=== PATIENT | male | born 1985 | race Caucasian/White ===

== ENCOUNTER 2018-04-14 20:01 | Inpatient (IN) | payer OTHER ==
[~2018-04-14] VITALS: Ht 188 cm; Wt 67.6 kg
--- NOTE | 2018-04-21 22:35 | NUR ---
PRE ADMISSION NOTE Pt is a 33 y/o male seen at intake on 04/21/18 for opiate withdrawal. Pt reports last intake of heroin IV 0.1 g this afternoon, typically uses 1 gram daily for the past month. Pt also reports intermittent methamphetamine use. Pt is ambulatory with steady gait. Vital signs: BP 144/67, HR 83, R 16, 02 98%, T 98.4 and Pain 0/10. Pt denies hx of allergies or seizures. Pt denies bringing home medications. Reports PMH of spinal fusion in 2014. Educated pt about rules and policies of the unit including handling of contraband and taking vital signs Q4H. Will continue care of patient upon arrival on unit.
--- NOTE | 2018-04-21 22:56 | NUR ---
ADMISSION NOTE Pt arrived on the unit 2256 for 04/21/18 for medically supervised withdrawal from opiates. Skin and body check completed, skin intact and no contraband found. Pt has abrasion on right forearm, IV track vang on left forearm and scar on upper back from spinal fusion. Pt provided UDS. Pt is 61 and weighs 149 lbs. Pt presents with anxiety, restlessness, poor eye contact, depressed affect, slumped posture, lethargy. Pt is ambulatory with steady gait. PEERLA. Respirations even and unlabored, lung sounds clear. Vital signs: BP 144/67, HR 83, R 16, 02 98%, T 98.4 and Pain 0/10. Substance Use History: 1. Heroin IV 1 g daily, last intake of 0.1 g this afternoon, at this rate for 1 month. 2. Methamphetamine 1 or two hits via smoke or IV intermittent approximately 3 x a week, last intake of 1 hit this afternoon, at this rate for 1 month. Pt reports the following S/S of withdrawal: Restlessness, body aches, stuffy nose, runny nose, and anxiety. Pt is full code, regular diet, NKA, and on fall precautions. No reported seizure history. Denies hx of withdrawal induced delirium, withdrawal induced cardiac complications or overdoses. Reports hx of blackout from ETOH from social drinking in the past. Pt reports PMH of spinal fusion in 2014. Pt smokes 0.5 pack daily, denies desire to quit at this time. Pt is not a candidate for MRSA, denies being hospitalized or in shelter in past 30 days. Reports having a PCP, but does not remember his name. Pt denies having siblings or kids, reports substance use history ETOH with mother and father. Pt reports his longest sobriety period was for 5 months 1 year ago after treatment at [facility] in [place]. Pt reports having the following treatment history: [facility] in [place], [place] for 2 months in January 2017, [facility] in [place] for 10 days in November 2017 and then [facility] in [place] directly after [facility] for 20 days. Pt stayed sober for one month after [facility]. Pt reports difficulty maintaining sobriety r/t difficulty coping with negative emotions and to avoid S/S of withdrawal. Pt reports that he relapsed this last time d/t getting kicked out of his last treatment program then not having Suboxone available and wanted to avoid S/S of withdrawal so he used again. Pt reports multiple consequences from using such as inability to maintain a job, difficulty maintaining close relationships, recent break up with his ex girlfriend, and not having a place to live at the moment. Pt reports he was living with his girlfriend, but since the breakup he has been sleeping on friends couches. Pt states that he wants to get sober and states, I dont want to feel like shit anymore...Im sick of losing relationships and I hate not being able to hold a job. Pt reports that this admission will be different, states, Jenelle learned a lot on the way from all my relapses and Im going to take this more seriously this timeBefore I wasnt going to meetings or being proactive about my sobriety, this time I want to try everything and take this seriously. Oriented pt to room and unit, educated pt about rules and expectations of unit and how to use call light. Pt verbalized understanding. Addendum: 04/22/18 at 0650 by DERRICK YATES RN Additional: Initial COWS 7. Pt refuses any PRNs. Pt states, "I'm not ready for Subutex yet."
[2018-04-21] MEDS ORDERED: ACETAMINOPHEN 325 MG TABLET PO PRN (23:00)
[2018-04-21] MEDS ORDERED: diphenhydrAMINE 50 MG CAPSULE PO PRN (23:00)
[2018-04-21] MEDS ORDERED: IBUPROFEN 400 MG TABLET PO PRN (23:00)
[2018-04-21] MEDS ORDERED: ONDANSETRON ODT 4 MG TAB.RAPDIS SL PRN (23:00)
[2018-04-21] MEDS ORDERED: MIRALAX 17 GM POWD.PACK PO PRN (23:00)
[2018-04-21] MEDS ORDERED: MAGNESIUM HYDROXIDE 30 ML LIQUID UDC PO PRN (23:00)
[2018-04-21] MEDS ORDERED: DICYCLOMINE HCL 20 MG TABLET PO PRN (23:00)
[2018-04-21] MEDS ORDERED: LOPERAMIDE HCL 2 MG CAPSULE PO PRN ×2 (23:00)
[2018-04-21] MEDS ORDERED: BUPRENORPHINE HCL 2 MG TAB.SUBL SL PRN (23:00)
[2018-04-21] MEDS ORDERED: MAG HYDROX/AL HYDROX/SIMETH 30 ML LIQUID UDC PO PRN (23:00)
[2018-04-21] MEDS ORDERED: ONDANSETRON 4 MG/2 ML VIAL IM PRN (23:00)
[2018-04-21 23:13] LABS: BASOPHILS # (AUTO) 0.1 K/uL (0.0-8.0); BASOPHILS % (AUTO) 1.4 % (0.0-2.0); EOSINOPHILS # (AUTO) 0.2 K/uL (0.0-0.7); EOSINOPHILS % (AUTO) 2.4 % (0.0-7.0); HEMOGLOBIN 13.5 g/dL (12.5-16.3); LYMPHOCYTES # (AUTO) 1.5 K/uL (20.0-40.0); LYMPHOCYTES % (AUTO) 19.8 % (20.5-51.5); MEAN CORPUSCULAR HEMOGLOBIN 30.5 uug (23.8-33.4); MEAN CORPUSCULAR HGB CONC 35 g/dL (32.5-36.3); MEAN CORPUSCULAR VOLUME 88.4 fL (73.0-96.2); MONOCYTES # (AUTO) 0.8 K/uL (2.0-10.0); MONOCYTES % (AUTO) 10.2 % (0.0-11.0); NEUTROPHILS % (AUTO) 66.2 % (38.5-71.5); PLATELET COUNT (AUTO) 266 K/uL (152-348); RED BLOOD CELL COUNT(AUTO) 4.41 MIL/uL (4.06-5.63); WHITE BLOOD COUNT (AUTO) 7.5 K/uL (3.6-10.2)
[2018-04-21 23:28] LABS: *AMPHETAMINE, URINE POSITIVE (NEGATIVE); *BARBITURATE, URINE NEGATIVE (NEGATIVE); *CANNABINOID, URINE NEGATIVE (NEGATIVE); *COCCAINE, URINE NEGATIVE (NEGATIVE); *OPIATE, URINE POSITIVE (NEGATIVE); *PHENCYCLIDINE SCREEN,URINE NEGATIVE (NEGATIVE)
[2018-04-21 23:37] LABS: ETHANOL < 3 MG/DL (0-0)
[2018-04-21 23:40] LABS: ALANINE AMINOTRANSFERASE 22 U/L (16-63); ALKALINE PHOSPHATASE 93 U/L (50-136); AMYLASE 37 U/L (25-115); ASPARTATE AMINOTRANSFERASE 13 U/L (15-37); BILIRUBIN,TOTAL 1.1 mg/dL (0.2-1.0); CARBON DIOXIDE 27 mmol/L (21-32); CHLORIDE 99 mmol/L (98-107); CREATININE 1.1 mg/dL (0.6-1.3); GLUCOSE 61 mg/dL (74-106); LIPASE 95 U/L (73-393); MAGNESIUM 1.9 mg/dL (1.8-2.4); POTASSIUM 3.7 mmol/L (3.5-5.1); UREA NITROGEN, BLOOD 12 mg/dL (7-18)
[2018-04-22] VITALS: BP 132/77
--- NOTE | 2018-04-22 | NUR ---
COWS 7 Pt presents with anxiety, restlessness, enlarged pupil dilation and HR 88. Pt is fidgety and has difficulty staying still.
[2018-04-22 00:06] LABS: THYROID STIMULATING HORMONE 1.395 mIU/mL (0.358-3.740)
[2018-04-22 04:00] VITALS: BP 136/81
--- NOTE | 2018-04-22 04:00 | NUR ---
END OF SHIFT Pt is a 33 y/o male admitted on 04/21/18 for opiate withdrawal. Pt had PRN Subutex available. Pt presented with anxiety, restlessness, poor eye contact, depressed affect, slumped posture, and lethargy. No medications administered, pt reported that he was not ready for Subutex. Pt presented with anxiety, restlessness, poor eye contact, depressed affect, slumped posture, and lethargy. Last COWS 7. Pt slept 6.5 hours. Intake 710 ml, void x 1, stool x 0. Safety measures in place. Call light within reach. Pts needs have been met. Endorsed to day shift nurse. Addendum: 04/22/18 at 0724 by DERRICK YATES RN WRONG INPUT TIME
--- NOTE | 2018-04-22 04:00 | NUR ---
COWS DEFERRED Pt laying in bed with eyes closed, COWS deferred, to be assessed when pt is awake per orders. Respirations even and unlabored. Safety measures in place. Call light within reach. Will continue to monitor.
--- NOTE | 2018-04-22 07:24 | NUR ---
END OF SHIFT Pt is a 33 y/o male admitted on 04/21/18 for opiate withdrawal. Pt had PRN Subutex available. Pt presented with anxiety, restlessness, poor eye contact, depressed affect, slumped posture, and lethargy. No medications administered, pt reported that he was not ready for Subutex. Pt presented with anxiety, restlessness, poor eye contact, depressed affect, slumped posture, and lethargy. Last COWS 7. Pt slept 6.5 hours. Intake 710 ml, void x 1, stool x 0. Safety measures in place. Call light within reach. Pts needs have been met. Endorsed to day shift nurse.
--- NOTE | 2018-04-22 07:29 | NUR ---
Start of Shift Report received from mini shifter nurse Pt is a 33 y/o male seen at intake on 04/21/18 for opiate withdrawal. Per mini shifter nurse pts Last COWS 7. Pt is currently not on a taper but has PRN medications in case of withdrawal symptoms. Upon start of shift pt noted laying in bed with eyes closed even non-labored breathing. When greeted pt stated "please I'm tired let me sleep a little more" Reoriented pt and reinforced the PRN medication he has in case of withdrawal symptoms. Pts room appears unorganized and messy pts clothes laying around the room. Pt appears anxious and presented with sweats. During assessment pt is A&Ox4, lung sounds clear bilaterally. Radial pulse is present regular. Abdomen soft non-tender. Pts skin warm and intact, pt denies any pain at the moment. Encouraged pt to drink plenty of fluids to help facilitate detox. Pt did not receive any PRN medications during the night time. Pt slept a total of 6 hours last night. Bed in lowest position, side rails upx2, Call light functioning and within reach, all needs attended and met. will continue to monitor.
[2018-04-22 08:00] VITALS: BP 130/80
[2018-04-22] MEDS ORDERED: TUBERCULIN,PURIF.PROT.DERIV. 5 TU/0.1 ML TEST ID ONE (09:00)
[2018-04-22 12:00] VITALS: BP 127/76
--- NOTE | 2018-04-22 12:00 | NUR ---
COWS SCORE Patient has a COWS score of 9 pt presents with Tremors, sweats, anxiety, mild tactile disturbance, chills and a flushed face and difficulty sitting still. will continue to monitor.
[2018-04-22 16:00] VITALS: BP 119/82
--- NOTE | 2018-04-22 19:15 | NUR ---
Start of Shift Patient Received. Per endorsement, patient is currently receiving PRN medications for increased signs and symptoms of withdrawal. He has been noted sleeping throughout the shift with no significant complaints noted. No PRN medications administered. Last noted COWS 9. Upon rounds, patient is noted sleeping in bed but easily awakened to verbal stimuli. Patient is able to verbalize "I'm not feeling the best but I dont want to take any medications right now because I dont feel like I need it." Encouraged patient to let staff know of any discomfort or complications. Will continue plan of care as ordered.
--- NOTE | 2018-04-22 19:15 | NUR ---
End of shift 320 Report given to night worker nurse patients VS monitored closely [id number]. Withdrawal symptoms were closely monitored. Initial COWS 9. Patient encouraged adequate PO fluid intake as tolerated. Patient presented with tremors chills, and anxiety during the day. Pt was visited by MD and is going to continue to stay on PRN taper medication for the time being. Pt laid in bed all day came out to smoke on occasions but mostly laid in bed and slept the whole time. Educated pt on s/e of the medications and what to look out for, pt also educated on signs and symptoms that should be reported to MD. Pt ate all of the meals today. Last COWS 9. Pt did not receive any PRN medications during the day. Pt just wanted to sleep and rest he was grateful that he was not bothered while sleeping. Patient encouraged to attend group therapies/sessions to learn new coping skills to recent relapse, patient denies SI/HI. Participated in group and therapy sessions. All needs met and attended
[2018-04-22 20:33] VITALS: BP 122/77
[2018-04-23 00:19] VITALS: BP 119/71
[2018-04-23 04:15] VITALS: BP 111/68
--- NOTE | 2018-04-23 04:15 | NUR ---
COWS and CIWA Patient is noted in bed with eyes closed. Breathing even and non labored. Patient is easily awakened to verbal stimuli. explained to him that vitals were ordered to be rendered. Patient was noted to easily fall back to sleep with no complications noted. COWS and CIWA not able to be completed as per order. Will continue to monitor.
--- NOTE | 2018-04-23 07:15 | NUR ---
End of Shift Patient is noted in bed sleeping. Breathing even and non labored. Patient continues on PRN medications for any increased signs and symptoms of withdrawal. No PRN Medications administered. Patient was noted to sleep throughout the shift with no complications noted. Patient is able to verbalize "I'm not feeling the best but I dont want to take any medications right now because I dont feel like I need it." Last noted COWS 4. Patient noted to sleep a total of 10 hours. All needs attended to promptly. will endorse to continue plan of care as ordered.
--- NOTE | 2018-04-23 07:30 | NUR ---
START OF SHIFT Pt 33 y/o male admitted for opiate withdrawal. Pt received in room on bed with eyes closed resting. Pt alert and oriented to name, place, and time. Perrla. Skin warm and moist to touch. Respirations even and unlabored. Pt appears disheveled and unkempt. Clothes and blankets scattered throughout the room, on the floors, on the couch, and on the drawers. Encouraged to maintain hygiene. Irritable, did not want to be assessed this morning, with pressured speech noted. It was reported that pt slept for 9 hours last night. No prns given last night. Bed on lowest position with side rails x2 up for safety. Call light within reach.
[2018-04-23 08:00] VITALS: BP 116/71
[2018-04-23] MEDS ORDERED: BUPRENORPHINE HCL 2 MG TAB.SUBL SL PRN (08:30)
[2018-04-23] MEDS ORDERED: LORAZEPAM 1 MG TABLET PO PRN (08:30)
--- NOTE | 2018-04-23 08:30 | NUR ---
COWS ASSESSMENT cows =14. Bilateral hand tremors noted. Perspiration on forehead and skin moist to touch, and with goosebumps noted. Complaints of generalized body/muscle aches. Irritable and agitated with pressured speech noted. Stated was restless and not able to sleep well. Stated, " It gets hot then cold". Addendum: 04/23/18 at 1216 by DEREK LARSEN RN additional Subutex prn per MD order given and tolerated well. MD aware. Will continue to monitor.
[2018-04-23] MEDS: METHOCARBAMOL 750 MG TABLET PO PRN ×2 (08:35→20:58)
--- NOTE | 2018-04-23 08:35 | NUR ---
PRN ROBAXIN Pt with c/o generalized body aches 03/08. Robaxin po prn per MD order given and tolerated well.
--- NOTE | 2018-04-23 09:35 | NUR ---
PRN ASIA BALLARD Pt states body aches 12/06.
--- NOTE | 2018-04-23 09:35 | NUR ---
PRN SUBUTEX EVAL cows=9. Decreased perspiration. Less anxious and irritable. Pt able to sit still with less frequent changes in position. Still with body aches. Denies any piloerection at this time. Will continue to monitor.
[2018-04-23 10:08] LABS: HEPATITIS B SURFACE AG Negative (Negative)
[2018-04-23 12:00] VITALS: BP 99/50
--- NOTE | 2018-04-23 12:00 | NUR ---
COWS ASSESSMENT cows=13. Pt still with intermittent sweats. Has difficulty concentrating, observed changing positions frequently while laying on bed. Pt also agitated and irritable. With c/o body aches. MD aware and pt started on a 5 day subutex taper.
[2018-04-23] MEDS ORDERED: 5 DAY TAPER BUPRENORPHINE -SERENITY PROTOCOL SL PRN (13:15)
[2018-04-23] MEDS: BUPRENORPHINE HCL 2 MG TAB.SUBL SL SCH ×3 (13:29→20:58)
[2018-04-23 16:00] VITALS: BP 105/64
--- NOTE | 2018-04-23 16:00 | NUR ---
COWS ASSESSMENT cows=14. Pt c/o episodes of chills and sweats. Generalized body aches. Appears fatigued. Irritable and easily agitated, required prompting to have vital signs done. Bilateral hand tremors noted. Will continue to monitor. Pt will receive subutex 4mg sl scheduled at 1700.
--- NOTE | 2018-04-23 18:45 | NUR ---
END OF SHIFT Pt 33 y/o male admitted for opiate withdrawal. Alert and oriented to name, place, and time. Perrla. Skin warm and moist to touch. Respirations even and unlabored. Bilateral hand tremors noted. Appears disheveled and unkempt. Clothes, food wrappings, and empty drink bottles scattered throughout the room. Also observed slippers and shoes on the bed. Isolative to room today. Minimal peer interaction. Complaint intermittent chills and sweats throughout the day. Body aches. Irritable, needed prompting to have vital signs taken this evening. Selective with group activity. Seen by MD today. Medication compliant. Last cows=14@1600. Pt started on a 5 day subutex taper today. Received subutex sl prn per MD order this morning for cows=14,and Robaxin po prn per MD order for complaints of generalized body aches. Bed on lowest position with side rails x2 up for safety. Call light within reach.
--- NOTE | 2018-04-23 19:30 | NUR ---
Start of Shift Patient Received. Per endorsement, patient was started on Subutex taper. Patient received PRN Subutex and Robaxin with medication noted to be effective. Patient was noted to be isolative to room and non compliant with group or social activities. Upon rounds patient is noted in his room, awake, alert and verbally responsive. Breathing even and non labored. Patients room is noted with an excessive amount of food, snacks, drinks, and trash through bedside table and floor. Patient is noted to be flat, blunt, easily irritable, drty fingernails, and disheveled. Last noted COWS 14. All needs attended to promptly. will endorse to continue plan of care as ordered.
[2018-04-23 20:54] VITALS: BP 123/78
--- NOTE | 2018-04-23 21:00 | NUR ---
PRN Medication Administration Patient is noted verbalizing increased body aches. PRN Robaxin administered. Will continue to monitor.
--- NOTE | 2018-04-23 22:00 | NUR ---
PRN Medication Reassessment Patient is noted in bed with his eyes closed. Breathing even and non labored. no restlessness or facial discomfort noted. PRN Robaxin noted to be effective. Will continue to monitor.
[2018-04-24 00:12] VITALS: BP 120/72
[2018-04-24 04:33] VITALS: BP 108/67
--- NOTE | 2018-04-24 07:13 | NUR ---
End of Shift Patient is in bed sleeping. Breathing even and non labored. Patient continues on a modified Subutex taper. He received PRN Robaxin with medication noted to be effective. Last noted COWS 12. Patient noted to sleep a total of 9 hours. Despite assisting patient in cleaning up, patients room remains unkempt and noted with trash, food, and spilled drinks on bedside table. Patient is noted to be flat, blunt, irritable, and disheveled. Last noted COWS 12. All needs attended to promptly. will endorse to continue plan of care as ordered.
--- NOTE | 2018-04-24 07:30 | NUR ---
START OF SHIFT Pt 33 y/o male admitted for opiate withdrawal. Pt received in room with eyes closed resting, but easily arousable to name. Perrla. Skin warm and moist to touch. Respirations even and unlabored. Bilateral hand tremors noted. Pt fatigued and did not want to get up for either vital signs or assessment this morning. Appears disheveled and unkempt. Clothes, food wrappings, and empty drink bottles scattered throughout the room. Shoes and slippers on the bed as well. Encouraged to maintain hygiene. It was reported that pt slept for 9 hours last night. Pt is on a 5 day subutex taper and is on day 4. It was reported that pt received toradol Im prn per MD order, catapres po prn per MD order, and tylenol po prn per MD order last night. Bed on lowest position with side rails x 2 up for safety. Call light within reach.
[2018-04-24 08:00] VITALS: BP 117/68
--- NOTE | 2018-04-24 08:00 | NUR ---
COWS ASSESSMENT cows=12. Bilateral hand tremors noted. Fatigued needed prompting to wake up this morning. Irritable when awake, was refusing to have vital signs taken, but allowed after prompting. Pressured speech noted. Bed sheets with moisture on it. States experiences chills and sweats throughout the night. States feels anxious when awake. Will continue to monitor.
[2018-04-24] MEDS: BUPRENORPHINE HCL 2 MG TAB.SUBL SL SCH ×3 (09:01→20:19)
[2018-04-24 12:00] VITALS: BP 117/62
--- NOTE | 2018-04-24 12:00 | NUR ---
COWS ASSESSMENT cows=12. Pt in room on bed and did not attend group activity. Easily agitated, required prompting to have vital signs done. Generalized discomfort noted, observed not being to lay still while in bed. Skin warm and moist to touch. Bed sheets with moisture noted. Bilateral hand tremors noted.
[2018-04-24 16:00] VITALS: BP 141/83
--- NOTE | 2018-04-24 16:00 | NUR ---
COWS ASSESSMENT cows=12. Anxious and restless. Observed pacing at times. Irritable with pressured speech noted. Bilateral hand tremors noted. Will continue to monitor.
--- NOTE | 2018-04-24 18:54 | NUR ---
END OF SHIFT Pt 33 y/o male admitted for opiate withdrawal. Pt alert and oriented to name, place, and time. Perrla. Skin warm and moist to touch. Respirations even and unlabored. Bilateral hand tremors noted. Appears disheveled and unkempt. Clothes scattered throughout the room. Encouraged to maintain hygiene. Agitated and irritable today. Isolative to room with no peer interaction. Low motivation for self care. Did not shower today even with prompting. Required prompting to have vital signs taken. Did not attend group activity. Was seen by MD today. Medication compliant. Pt is on a 5 day subutex taper and is on day 2. Last cows= 12@ 1600. Bed on lowest position with side rails x2 up for safety. Call light within reach.
--- NOTE | 2018-04-24 19:15 | NUR ---
Start of Shift Note: Patient is a 33 y/o male admitted on 04/21/18 for medically supervised withdrawal from Heroin use. Patient is alert & oriented x4. He appears disheveled, unkempt, and malodorus. Encourage pt to maintain proper hygiene. Room is cluttered with scattered clothes, food, & empty bottles all throughout her room. He presented with sweating, chills, restlessness, 6/10 generalized body aches, anxiety, runny nose, & fine tremors. He continues on his 5-day Subutex taper and tolerating well. Last COWS 12. No PRN medications received during day shift. Pt encourage to increase fluid intake for hydration. Educated pt of current plan of care for the night and medication regimen. Safety measures in place. Will continue to monitor patient.
[2018-04-24 20:00] VITALS: BP 100/62
[2018-04-24] MEDS: METHOCARBAMOL 750 MG TABLET PO PRN (20:19)
[2018-04-24] MEDS: HYDROXYZINE PAMOATE 25 MG CAPSULE PO PRN (20:19)
--- NOTE | 2018-04-24 20:19 | NUR ---
PRN Robaxin& Vistaril Patient complained of 6/10 myalgia and anxiety. PRN Vistaril & Robaxin administered as ordered. Will monitor for effectiveness of medication.
--- NOTE | 2018-04-24 21:19 | NUR ---
PRN Reassessment Patient verbalized in anxiety & decreased in body aches from 03/08 to 12/06 after medication administration. Patient in bed and appears more comfortable at this time. Safety measures in place. Will continue to monitor patient.
--- NOTE | 2018-04-25 | NUR ---
Vitals/COWS deferred Patient in bed with eyes close. Pt refused vitals at this time. Respiration even & unlabored. Unable to assess COWS at this time will reassess when pt is awake. Safety measures in place. Will continue to monitor patient.
--- NOTE | 2018-04-25 04:00 | NUR ---
Vitals/COWS deferred Patient asleep in bed and appears comfortable. Pt refused vitals at this time. Respiration even & unlabored. Unable to assess COWS at this time will reassess when pt is awake. Safety measures in place. Will continue to monitor patient.
--- NOTE | 2018-04-25 07:18 | NUR ---
End of Shift Note: Continue to closely monitor patient. He remains alert & oriented x4. He remains isolative and withdrawn and stayed in his room most of the shift. He presented with anxiety, agitation, sweating, chills, restlessness, myalgia, runny nose, & fine tremors. He continues on his Subutex taper and he is tolerating well. Pt received PRN Vistaril & Robaxin during my shift and were effective. Last COWS 11. Pt reported taper medication to be effective in decreasing symptoms of withdrawal. Pt remained stable and vitals noted WNL. Continue to encourage pt to increase fluid intake for hydration and to attend group activities to learn coping skills. She slept for a total of 7 hours. Fluid intake 1355 ml, Voided 4x with no bowel movement. All needs attended. Safety measures in place. Will endorse pt to day shift nurse.
--- NOTE | 2018-04-25 08:16 | NUR ---
BEGINNING OF SHIFT Patient endorsement report received from operations supervisor 2nd shift nurse, all pertinent information was discussed. Patient is a 33 year old male admitted on 04/21/2018, with admitting Dx: opiate withdrawal. Patient also with substance use of: methamphetamine. Patient continues under close observation. Per operations supervisor 2nd shift patient received PRN: Robaxin and vistaril as per operations supervisor 2nd shift medications were effective. Patient slept for 7 hours. Patient Continues on 5 day Subutex taper as ordered, and is currently scheduled to begin day 4. Patient with last COW score of: 11. Safety measures are in place. patient received awake, alert and oriented x4. Educated regarding plan of care for the day and medication regimen. Will continue to monitor closely.
[2018-04-25 08:25] VITALS: BP 102/60
[2018-04-25] MEDS ORDERED: BUPRENORPHINE HCL 2 MG TAB.SUBL SL SCH (09:00)
--- NOTE | 2018-04-25 09:45 | NUR ---
WITHDRAWAL SYMPTOMS Patient in bed presenting with: agitation, anhedonia, anxiety, arthralgias, chills, difficulty concentrating, emotional volatility, generalized discomfort, increased emotional amplitude, malaise, muscle aches, nasal congestion, and yawning. Patient with COW score of: 12. Continues with ongoing Subutex taper as ordered, will continue to monitor. safety measures in place.
[2018-04-25 12:29] VITALS: BP 106/60
--- NOTE | 2018-04-25 13:00 | NUR ---
WITHDRAWAL SYMPTOMS Continues to exhibit the following s/sx of withdrawal: agitation, anhedonia, anxiety, arthralgias, chills, difficulty concentrating, emotional volatility, generalized discomfort, increased emotional amplitude, malaise, muscle aches, nasal congestion, and yawning. Patient with COW score of: 12. Patient encouraged to practice self soothing techniques such as progressive muscle relaxation. encouraged to participate in therapy sessions. will continue to monitor. safety measures in place.
[2018-04-25] MEDS: BUPRENORPHINE HCL 2 MG TAB.SUBL SL SCH ×2 (14:51→20:36)
[2018-04-25 17:26] VITALS: BP 101/68
--- NOTE | 2018-04-25 17:27 | NUR ---
WITHDRAWAL SYMPTOMS Patient continues to exhibit the following s/sx of withdrawal: agitation, anhedonia, anxiety, arthralgias, chills, difficulty concentrating, emotional volatility, generalized discomfort, increased emotional amplitude, malaise, muscle aches, nasal congestion, and yawning. Patient with COW score of: 12. Patient offered PRN medications as needed, and declined. will continue to monitor. safety measures in place.
[2018-04-25] MEDS: CLONIDINE HCL 0.1 MG TABLET PO PRN (18:13)
--- NOTE | 2018-04-25 18:13 | NUR ---
PRN CLONIDINE Patient reported feeling increase anxiety, noted wringing hands, and pacing. provided with non pharmacological interventions with no relief, administered Clonidine 0.1mg PO as ordered, will monitor effectiveness of medication.
--- NOTE | 2018-04-25 19:13 | NUR ---
CLONIDINE REASSESSMENT Patient reports feeling less anxious, medication effective, will continue to monitor.
--- NOTE | 2018-04-25 19:14 | NUR ---
END OF SHIFT Patient continues on Subutex taper as ordered, currently on day 2 of taper. Detox medication effective at reducing withdrawal symptoms. During shift patient exhibited the following s/sx of withdrawal: agitation, anhedonia, anxiety, arthralgias, chills, difficulty concentrating, emotional volatility, generalized discomfort, increased emotional amplitude, malaise, muscle aches, nasal congestion, and yawning. Patient with last COW score of: 12. Noted self isolative, patient was encouraged to participate in group therapies/session, denies any SI/HI. Patient offered PRN medications as needed for withdrawal symptoms, Received PRN clonidine, for increase anxiety, medication effective one hour post administration. Patient easily agitated, noted with irritable, angry, agitated affect with agitated mood. Encouraged patient to verbalize feelings as needed. Encouraged to develop coping skills and utilization of non pharmacological interventions. Patients appearance and hygiene were as follows, noted unkempt, disheveled, unwashed clothing on floor, unshaven. Room appeared with garbage around room, odorous, hoarding food, clothes thrown on floor, dirty linens, refuses change. Patient with inability to perform ADL's without prompting. Patient was encouraged to self groom and maintain personal area. Seen By Dr. Jones during shift. Safety measures are in place. Call light with in reach. Patient endorsed to hotel night auditor nurse, all pertinent information was discussed.
--- NOTE | 2018-04-25 19:15 | NUR ---
Start of Shift Note: Continue to closely monitor patient. Patient is alert & oriented x4. He continues to appea in a disheveled state, unkempt, and malodorous. Encourage pt to maintain self care and proper hygiene. Room is cluttered with scattered clothes, food, & empty bottles all throughout her room. He presented with sweating, chills, restlessness, 7/10 generalized body aches, anxiety, runny nose, & fine tremors. No N/V/D noted. He continues on his 5-day Subutex taper and tolerating well. Last COWS 12. Pt received PRN Clonidine during day shift. Pt encourage to increase fluid intake for hydration. Educated pt of current plan of care for the night and medication regimen. Safety measures in place. Will continue to monitor patient.
[2018-04-25 20:00] VITALS: BP 110/66
[2018-04-25] MEDS: METHOCARBAMOL 750 MG TABLET PO PRN (20:36)
[2018-04-25] MEDS: HYDROXYZINE PAMOATE 25 MG CAPSULE PO PRN (20:36)
--- NOTE | 2018-04-25 20:36 | NUR ---
PRN Vistaril & Robaxin Pt complains of anxiety & 7/10 generalized body aches. Non-pharmacological intervention provided but not effective. PRN Vistaril & Robaxin administered as ordered. Will monitor for effectiveness of medication.
--- NOTE | 2018-04-25 21:36 | NUR ---
PRN Reassessment Patient appears less anxious at this time. He verbalized decreased in body aches form 710 to 3/10 after PRN medication administration. Pt in bed and appears comfortable. Safety measures in place. Will continue to monitor patient.
--- NOTE | 2018-04-26 | NUR ---
Vitals/COWS deferred Patient refused vitals. Patient in bed with eyes close. Patient appears comfortable. Respiration even & unlabored. Unable to assess COWS at this time and will reassess when pt is awake. Safety measures in place. Will continue to monitor patient.
--- NOTE | 2018-04-26 07:02 | NUR ---
End of Shift Note: Continue to closely monitor patient. He remains alert & oriented x4. He remains isolative and withdrawn and stayed in his room most of the shift. Encourage pt to attend in group therapies to learn new coping skills to prevent relapse. He continues to appear in a disheveled state, unkempt, and malodorus. Encourage pt to maintain self care and proper hygiene. He presented with sweating, chills, restlessness, myalgia, anxiety, runny nose, & fine tremors. He continues on his Subutex taper and he is tolerating well. Pt received PRN Vistaril & Robaxin during my shift and were effective. Last COWS 11. Pt reported taper medication to be effective in decreasing symptoms of withdrawal. Pt remained stable and vitals noted WNL. He slept for a total of 9 hours. Fluid intake 500 ml, Voided 1x with no bowel movement. All needs attended. Safety measures in place. Will endorse pt to day shift nurse.
--- NOTE | 2018-04-26 07:30 | NUR ---
START OF SHIFT Pt 33 y/o male admitted for opiate withdrawal. Received in room with eyes closed resting. Alert and oriented to name, place, and time. Perrla. Skin warm and moist to touch. Respirations even and unlabored. Bilateral hand tremors noted. Appears disheveled and unkempt. Clothes scattered throughout the room. Encouraged to maintain hygiene. Anxious and irritable this morning. Complaints of intermittent perspiration. It was reported that pt slept for 9 hours last night. Last cows=11@1999. Pt is on a 5 day subutex taper and is on day 4. Bed on lowest position with side rails x2 up for safety. Call light within reach.
[2018-04-26 08:00] VITALS: BP 115/60
--- NOTE | 2018-04-26 08:00 | NUR ---
COWS ASSESSMENT cows=14. Bilateral hand tremors. Intermittent perspirations. Complaint of chills and sweats. Generalized discomfort. Anxious and restless. Irritable.
[2018-04-26] MEDS: BUPRENORPHINE HCL 2 MG TAB.SUBL SL SCH ×3 (08:46→20:54)
[2018-04-26 12:00] VITALS: BP 105/63
--- NOTE | 2018-04-26 12:00 | NUR ---
COWS ASSESSMENT cows=14. Nasal congestion. Bilateral hand tremors. Intermittent perspiration. Piloerection. Anxious and irritable.
[2018-04-26] MEDS: CLONIDINE HCL 0.1 MG TABLET PO PRN ×2 (14:23→21:04)
--- NOTE | 2018-04-26 14:24 | NUR ---
PRN CATAPRES Anxious and restless. Not able to lay still. Catapres po prn per MD order given and tolerated well.
--- NOTE | 2018-04-26 15:24 | NUR ---
TOSHIA RIVERO Pt states he feels more calm, less anxious. Addendum: 04/26/18 at 1726 by DEREK LARSEN RN incorrect title TOSHIA BALLARD
[2018-04-26 16:00] VITALS: BP 103/60
--- NOTE | 2018-04-26 16:00 | NUR ---
COWS ASSESSMENT cows=13. Nasal congestion. Bilateral hand tremors. Intermittent perspiration. Anxious and irritable. Piloerection. Generalized discomfort.
--- NOTE | 2018-04-26 18:42 | NUR ---
END OF SHIFT Pt 33 y/o male admitted for opiate withdrawal. Pt alert and oriented to name, place, and time. Perrla. Skin warm and moist to touch. Respirations even and unlabored. Bilateral hand tremors noted. Appears disheveled. Clothes and empty drink bottles scattered throughout the room. Encouraged to maintain hygiene. Irritable. Goosebumps. Generalized discomfort. Isolative to room with no peer interaction. Low motivation for self care. Did not attend group activity. Was seen by MD today. Medication compliant. Pt is on a 5 day subutex taper and is on day 4. Last cows= 13@ 1600. Bed on lowest position with side rails x2 up for safety. Call light within reach.
--- NOTE | 2018-04-26 19:30 | NUR ---
START OF SHIFT Pt 33 y/o male admitted for opiate withdrawal. Pt is A/A/O X 4,received in room. Per report, Pt has been isolative and withdrawn,in room most of time,did not attend any groups.Pt is c/o generalized discomfort and c/o feeling tired.Pt has been medication compliant, continues on a 5 day Subutex taper as ordered and is on day 4 today. Last cows= 13@ 1600. Bed is in lowest position with side rails x2 up for safety. Call light within reach, will continue to monitor.
[2018-04-26 20:00] VITALS: BP 126/70
--- NOTE | 2018-04-26 21:05 | NUR ---
PRN CLONIDINE Pt c/o feeling anxious and restless,unable to sit still,stated that clonidine has helped him with similar symptoms earlier.Clonidine given as ordered,will continue to monitor.
--- NOTE | 2018-04-26 22:05 | NUR ---
PRN F/U Pt is calm and resting in bed with eyes closed;no s/s of anxiety noted.Will continue to monitor.
--- NOTE | 2018-04-27 | NUR ---
COWS DEFERRED; V/S REFUSED. Pt is resting comfortable in bed with eyes closed;breathing is even and non labored; no s/s of distress noted; COWS deferred due to patient being asleep;v/s refused, will continue to monitor.
--- NOTE | 2018-04-27 06:45 | NUR ---
END OF SHIFT Pt 33 y/o male admitted for opiate withdrawal.PRN Clonidine was given for c/o anxiety and was effective.Pt slept 9 hrs,fluid intake was 3025 mls,voided x 2.Pt has been medication compliant, continues on a 5 day Subutex taper and is on day 5. Last cows= 11@ 1999.Mid night and 0400 CIWA deferred due to Pt being asleep. Bed on lowest position with side rails x2 up for safety. Call light within reach, will endorse care to day shift nurse.
--- NOTE | 2018-04-27 07:50 | NUR ---
START OF SHIFT NOTE Received report from night nurse,33 year old male admitted for Heroin/Meth withdrawal. Patient continues on Subutex taper tolerating well. Per endorsement patient received PRN Clonidine effective per night nurse,Last -, slept for 9 hours. Received patient alert awake anxious, agitation, bilateral hand termones, difficulty sitting still, yawning, anhedonia, empty bottles on the floor and linens also on the floor noted,. Educated patient regarding importance of attending groups activities, patient verbalized understanding. All safety measures in place, Call light within reach. Will cont to monitor.
[2018-04-27 08:00] VITALS: BP 103/63
--- NOTE | 2018-04-27 08:00 | NUR ---
COWS SCORE COWS score-15, Patient presented with chills, difficulty sitting still, body aches, runny nose, yawning, anxiety, restless, agitation. Patient is due for schedule medication. Will cont to monitor.
[2018-04-27] MEDS ORDERED: BUPRENORPHINE HCL 2 MG TAB.SUBL SL SCH (09:00)
[2018-04-27 12:00] VITALS: BP 109/60
--- NOTE | 2018-04-27 12:00 | NUR ---
COWS SCORE COWS score-11, Patient continues to presents anxiety, restless, agitation, sweats, chills, encourage patient to use distraction like watching TV and interacting with peers. Will cont to monitor. .
[2018-04-27 16:00] VITALS: BP 124/87
--- NOTE | 2018-04-27 16:00 | NUR ---
COWS SCORE COWS score-8, patient back from groups and reported, decreased in anxiety,agitation, restless, chills, sweats, Will cont to monitor.
--- NOTE | 2018-04-27 18:56 | NUR ---
END OF SHIFT NOTE Gave report to night nurse, 33 year old male admitted for Meth/Heroin withdrawal and continues completed his Subutex taper tolerated well. Patient continues to exhibit light leaded, anxiety, agitation, restless, labile facial expression, anhedonia, unkempt room, diaphoretic, patient was given scheduled medications Encourage PO fluids as tolerated. Last , COWS-8. Encourage patient to attend groups activities to learn new coping skills. Patient noted attending group activities and interacting with peers. Patient set to discharge in AM. Skin intact warm and dry tot touch. Last COWS score was-8. All safety measures in place, call light within reach. Patient endorse to night nurse in stable condition.
--- NOTE | 2018-04-27 19:30 | NUR ---
START OF SHIFT Pt 33 y/o male admitted for opiate withdrawal. Pt is A/A/O X 4,received in the hallway noted to be anxious and restless,focused on going to smoke. Per report, Pt was attending groups and interacting well with peers.Pt is scheduled for discharge in the morning. Last COWS score was-8.No PRN meds given during the day. All safety measures in place.Bed is locked in lowest position with side rails up x2 up for safety. Call light is within reach, will continue to monitor for safety.
[2018-04-27 20:00] VITALS: BP 136/78
--- NOTE | 2018-04-27 20:00 | NUR ---
COWS=8.Pt is feeling anxious,restless,c/o having tremors and myalgia,stated that he needs some "comforting measures" tonight to help him sleep,because he is off Subutex.Emotional support and non pharmacological measures encouraged;will continue to monitor.
[2018-04-27] MEDS ORDERED: METH-406 PO (21:12)
[2018-04-27] MEDS ORDERED: HYDR-3895 PO (21:12)
[2018-04-27] MEDS ORDERED: DIPH50CA37 PO (21:12)
[2018-04-27] MEDS ORDERED: CLON0.1T14 PO (21:12)
[2018-04-27] MEDS: METHOCARBAMOL 750 MG TABLET PO PRN (22:19)
[2018-04-27] MEDS: CLONIDINE HCL 0.1 MG TABLET PO PRN (22:20)
--- NOTE | 2018-04-27 22:21 | NUR ---
PRN MEDS PRN CLONIDINE,ROBAXIN AND BENADRYL GIVEN ORDERED FOR C/O ANXIETY,MYLAGIA AND INSOMNIA,RESPECTIVELY.WILL MONITOR FOR EFFECTIVENESS.
--- NOTE | 2018-04-27 23:20 | NUR ---
PRN REASSESSMENT Pt is calm and resting in bed with eyes closed,appears to be sleeping,no s/s of distress noted,will continue to monitor.
[2018-04-28 08:00] VITALS: BP 102/63
--- NOTE | 2018-04-28 08:00 | NUR ---
START OF SHIFT NOTE Received report from night nurse,33 year old male admitted for Heroin/Meth withdrawal. Patient completed his Subutex taper tolerated well. Per endorsement patient received PRN Clonidine, Robaxin, Benadryl effective per night nurse, Last COWS-8, slept for 7 hours. Received patient alert awake anxious, agitation, anhedonia, empty bottles on the floor. Educated patient regarding importance of attending groups activities, patient verbalized understanding. All safety measures in place, Call light within reach. Will cont to monitor.
--- NOTE | 2018-04-28 09:38 | NUR ---
DISCHARGE NOTE Patient discharge from [facility] in stable condition. Patient completed his taper tolerated well. Vital signs WNL. Patient denies nay SI/HI. All discharge paper work completed signed and dated. All personal belongings returned to the patient including prescription. Patient, patient did not bring any medications from home. Patient discharge from [facility] to the [facility] on 04/28/18 at 0938. notified.
== END 2018-04-28 09:38 | disposition other institution (70) | DRG 897 ==
LOC: SRC 04-21 22:05
PROVIDERS: ADMIT Family Medicine Addiction Medicine; ATTEND Family Medicine
PROC: HZ2ZZZZ Detoxification Services for Substance Abuse Treatment (ICD-10-PCS; principal; 2018-04-21)
DX: F11.23 Opioid dependence with withdrawal (principal); F17.210 Nicotine dependence, cigarettes, uncomplicated; F41.9 Anxiety disorder, unspecified; F15.10 Other stimulant abuse, uncomplicated
CPT/HCPCS: 36415; 80307; 83690; 83735; 84443; 85025; 86592; 86705; 86803; 87340; 87806; A4663; G0480; Q0163

== ENCOUNTER 2018-05-02 23:16 | Inpatient (IN) | payer OTHER ==
[~2018-05-02] VITALS: Ht 185.4 cm; Wt 70.3 kg
[~2018-05-02 23:16] MED LIST: CLON0.1T14 PO; DIPH50CA37 PO; HYDR-3895 PO; METH-406 PO
[2018-05-03] VITALS (7 sets, daily range): BP systolic 128–160; BP diastolic 84–103
--- NOTE | 2018-05-03 00:31 | NUR ---
PRE-ADMISSION NOTE Pt was seen in the intake office. Pt is mildly intoxicated. Pt states they are beginning to feel the effects of withdrawal. Pt has observably moist skin, and an unshaven and odorous appearance. Pt has a steady gait. V/S: P:122, RR:18, SPO2:100, BP:158/88. Pt is acceptable for admittance to the unit.
[2018-05-03] MEDS ORDERED: THIAMINE HCL 200 MG/2 ML VIAL IM ONE (00:45)
[2018-05-03] MEDS ORDERED: ACETAMINOPHEN 325 MG TABLET PO PRN (00:45)
[2018-05-03] MEDS ORDERED: LORAZEPAM 2 MG/1 ML VIAL IM PRN (00:45)
[2018-05-03] MEDS ORDERED: ONDANSETRON 4 MG/2 ML VIAL IM PRN (00:45)
[2018-05-03] MEDS ORDERED: MAGNESIUM HYDROXIDE 30 ML LIQUID UDC PO PRN (00:45)
[2018-05-03] MEDS ORDERED: LOPERAMIDE HCL 2 MG CAPSULE PO PRN ×2 (00:45)
[2018-05-03] MEDS ORDERED: DICYCLOMINE HCL 20 MG TABLET PO PRN (00:45)
[2018-05-03] MEDS ORDERED: ONDANSETRON ODT 4 MG TAB.RAPDIS SL PRN (00:45)
[2018-05-03] MEDS ORDERED: MIRALAX 17 GM POWD.PACK PO PRN (00:45)
[2018-05-03] MEDS ORDERED: MAG HYDROX/AL HYDROX/SIMETH 30 ML LIQUID UDC PO PRN (00:45)
--- NOTE | 2018-05-03 01:13 | NUR ---
ADMISSION NOTE Pt is a 33y/o male being admitted for medically supervised withdrawal from Heroin and ETOH. Pt is mildly intoxicated and is currently beginning to experience s/s of withdrawal. Pt is odorous, unshaven, sweaty, and has an anxious mood. Pt is A/O to person, place, time, and purpose. Pt's speech is normal, but he has avoidant eye contact. Pt states that withdrawal from these substances usually includes body aches, anxiety, agitation, restlessness, sweats, and insomnia. Pt denies h/o withdrawal induced seizures and delirium. Pt states current substance us as follows: 1. Heroin: 1g daily for the past 45 days. Pts last use was on 05/02/18 before noon. Pt first began using 22 yrs ago. 2. ETOH: 1.75L every two days for the past 45 days. Pts last use was on 05/02/18 before noon. Pt first began using 22 yrs. ago. Pt states they are seeking treatment today because Jenelle lost everything over the last two years. Pt also states Im a retard for coming back here so soon. Pt left [facility] about a week and a half ago, and while at treatment was talked into getting high one last time. Pt has also been to [facility], most recently last summer. Pt states that this time will be different because I want this to be the last time.Im tired of living this way. Pt would like to continue treatment at a residential facility and then a sober living house. Pt states even though his parents were addicts they are a good support system now. V/S: T:98.3, P:105, RR:18, SPO2:99, BP:160/94. Pt denies any pain. Respirations are unlabored and even. Skin is intact. Pt states they have lost 50 lbs over the last 3 mos. Pt smokes approx. 20 cigarettes per day. Pt does not have a primary care doctor. Pt does have a h/o of T1-10 spinal fusion 9 yrs ago. Pt has no other significant medical Hx and has no home medications. Pt does not have a psychiatrist. Pt has no mental health Hx. Pt was educated on treatment plan, as well as, the rules of the unit. Pt provided UDS and blood lab work. Call light is within reach. Pt will continue to be monitored and needs met.
[2018-05-03 01:44] LABS: *AMPHETAMINE, URINE POSITIVE (NEGATIVE); *BARBITURATE, URINE NEGATIVE (NEGATIVE); *CANNABINOID, URINE POSITIVE (NEGATIVE); *COCCAINE, URINE NEGATIVE (NEGATIVE); *OPIATE, URINE POSITIVE (NEGATIVE); *PHENCYCLIDINE SCREEN,URINE NEGATIVE (NEGATIVE)
[2018-05-03] MEDS: BUPRENORPHINE HCL 2 MG TAB.SUBL SL PRN ×2 (01:54→08:19)
[2018-05-03] MEDS: diphenhydrAMINE 50 MG CAPSULE PO PRN ×2 (01:54→20:43)
[2018-05-03] MEDS: LORAZEPAM 1 MG TABLET PO PRN ×5 (01:54→23:45)
--- NOTE | 2018-05-03 01:54 | NUR ---
PRN SUBUTEX, ATIVAN, AND BENADRYL ADMINISTRATION Subutex 4mg , Ativan 1mg, and Benadryl 50mg given for CIWA 14 and COWS 13. Pt presenting w/ anxious mood, sweats, and insomnia. Pt's BP 170/94. Will reassess pt in 1 hr.
[2018-05-03 01:58] LABS: BASOPHILS # (AUTO) 0.1 K/uL (0.0-8.0); BASOPHILS % (AUTO) 0.9 % (0.0-2.0); EOSINOPHILS # (AUTO) 0.1 K/uL (0.0-0.7); EOSINOPHILS % (AUTO) 1.1 % (0.0-7.0); HEMATOCRIT 41.4 % (36.7-47.1); HEMOGLOBIN 13.7 g/dL (12.5-16.3); LYMPHOCYTES # (AUTO) 2.7 K/uL (20.0-40.0); MEAN CORPUSCULAR HEMOGLOBIN 29.8 uug (23.8-33.4); MEAN CORPUSCULAR HGB CONC 33 g/dL (32.5-36.3); MEAN CORPUSCULAR VOLUME 90.4 fL (73.0-96.2); MONOCYTES # (AUTO) 0.6 K/uL (2.0-10.0); MONOCYTES % (AUTO) 5.6 % (0.0-11.0); NEUTROPHILS # (AUTO) 7.7 K/uL (1.8-8.9); NEUTROPHILS % (AUTO) 68.4 % (38.5-71.5); PLATELET COUNT (AUTO) 366 K/uL (152-348); RED BLOOD CELL COUNT(AUTO) 4.57 MIL/uL (4.06-5.63); WHITE BLOOD COUNT (AUTO) 11.2 K/uL (3.6-10.2)
[2018-05-03 02:12] LABS: ETHANOL < 3 MG/DL (0-0)
--- NOTE | 2018-05-03 02:54 | NUR ---
PRN SUBUTEX, ATIVAN, AND BENADRYL REASSESSMENT Pt is in bed. Pt's BP is 154/88. Pt states the anxiety and sweats have subsided. Will continue to monitor pt.
[2018-05-03 03:06] LABS: ALANINE AMINOTRANSFERASE 37 U/L (16-63); ALKALINE PHOSPHATASE 77 U/L (50-136); AMYLASE 85 U/L (25-115); ASPARTATE AMINOTRANSFERASE 15 U/L (15-37); BILIRUBIN,TOTAL 0.4 mg/dL (0.2-1.0); CARBON DIOXIDE 26 mmol/L (21-32); CHLORIDE 102 mmol/L (98-107); GLUCOSE 114 mg/dL (74-106); LIPASE 315 U/L (73-393); MAGNESIUM 2.3 mg/dL (1.8-2.4); POTASSIUM 3.8 mmol/L (3.5-5.1); UREA NITROGEN, BLOOD 18 mg/dL (7-18)
--- NOTE | 2018-05-03 04:00 | NUR ---
CIWA AND COWS ASSESSMENT CIWA 13 and COWS 11. Pt is presenting w/ sweats, anxious mood, restlessness, tremors, and hallman aches. V/S: T: 98.2, P:98, RR:18, SPO2:100, BP:143/87.
--- NOTE | 2018-05-03 07:19 | NUR ---
END OF SHIFT NOTE Endorsed pt to oncoming nurse. Pt is a 33 y/o male A/O to person, place, time, and purpose. Pt was admitted for medically supervised withdrawal from ETOH and Heroin. Pt began to present w/ anxiety, restlessness, sweats, tremors, and insomnia. PRN Subutex, Ativan, and Benadryl were given for increased CIWA and COWS, and sleep. Pts fluid intake was 1000ml and he voided 1 time. Pt has not fallen asleep since admittance. Last CIWA 13 and COWS 11 @ 0400. Call light is within reach.
--- NOTE | 2018-05-03 07:36 | NUR ---
Start of shift Pt is a 33 y/o male A/O to person, place, time, and purpose. Pt was admitted for medically supervised withdrawal from ETOH and Heroin. Pt presents w/ moderate anxiety, restlessness, sweats, tremors, body aches, and insomnia. PRN Subutex, Ativan, and Benadryl were given last night. Pt did not sleep last night. Last CIWA 13 and COWS 11 @ 0400. Pt reports NKA, Full Code and regular diet. All safety measures in place. Bed low, locked position, side rails upx2, call light is within reach.
--- NOTE | 2018-05-03 08:00 | NUR ---
COWS 16- PT PRESENTS WITH SWEATS, RESTLESS LEGS, BODY ACHES, BONE AND JOINT PAIN, STUFFY NOSE, FINE TREMORS AND MODERATE ANXIETY. CIWA 15- PT PRESENTS WITH FINE TREMORS, SWEATS, MODERATE ANXIETY AND AGITATION.
[2018-05-03] MEDS: MULTIVITAMINS,THERAPEUTIC TABLET PO SCH (08:18)
[2018-05-03] MEDS: CLONIDINE HCL 0.1 MG TABLET PO PRN ×3 (08:18→22:28)
[2018-05-03] MEDS: THIAMINE HCL 100 MG TABLET PO SCH (08:18)
[2018-05-03] MEDS: METHOCARBAMOL 750 MG TABLET PO PRN ×2 (08:18→16:47)
[2018-05-03] MEDS: IBUPROFEN 400 MG TABLET PO PRN ×2 (08:18→16:47)
[2018-05-03] MEDS: FOLIC ACID 1 MG TABLET PO SCH (08:19)
[2018-05-03] MEDS: HYDROXYZINE PAMOATE 25 MG CAPSULE PO PRN ×3 (08:19→22:28)
--- NOTE | 2018-05-03 08:22 | NUR ---
PRN MEDICATIONS GIVEM MOTRIN 400 MG PO FOR BODY PAIN #5/10 ROBAXIN 750 MG PO FOR GENERALIZED BODY ACHES SUBUTEX 4 MG SL FOR COWS 13 VISTARIL 25 MG PO FOR MODERATE ANXIETY CATAPRES 0.1 MG PO FOR BP 160/102 ATIVAN 1 MG PO FOR CIWA 15 Addendum: 05/03/18 at 0842 by Fani Agee RN COWS 16, ADMINISTERED SUBUTEX 4 MG SL
--- NOTE | 2018-05-03 09:23 | NUR ---
REASSESS PRN MEDICATIONS COWS 14, CIWA 14. PT PRESENTS WITH SWEATS, RESTLESS LEGS, BODY ACHES AND JOINTS #5/10, FINE TREMORS, ANXIOUSNESS. SUBUTEX- COWS DECREASED TO 14 ATIVAN- CIWA DECREASED TO 14 MOTRIN- BODY PAIN/JOINT PAIN REMAINS AT #5/10 MEDICATION NOT EFFECTIVE ROBAXIN- BODY ACHES ARE PERSISTENT, MEDICATION MINIMALLY EFFECTIVE PER PT. VISTARIL- PT REPORTS ANXIETY IMPROVED. MEDICATION EFFECTIVE CATAPRES- BP IMPROVED NOW 155/85. MEDICATION EFFECTIVE.
[2018-05-03] MEDS ORDERED: 3 DAY TAPER BUPRENORPHINE -SERENITY PROTOCOL SL PRN (10:15)
--- NOTE | 2018-05-03 12:00 | NUR ---
COWS 14/ CIWA 16- PT PRESENTS WITH SWEATS, RESTLESS LEGS, BODY ACHES, BONE AND JOINT PAIN, STUFFY NOSE, FINE TREMORS AND MODERATE ANXIETY AND AGITATION. Addendum: 05/03/18 at 1246 by Fani Agee RN ADMINISTER SUBUTEX 4 MG SL PER TAPER ORDER.
[2018-05-03] MEDS: BUPRENORPHINE HCL 2 MG TAB.SUBL SL SCH ×2 (12:44→20:43)
--- NOTE | 2018-05-03 14:45 | NUR ---
Behaviorial Note- Pt agitated, anxious, manic speech, argumentative and suspicious. Pt wants to change room out of line of sight of nursing station. Pt short tempered with staff, uses abusive language. CIWA 19, COWS 18. Administered PRN Ativan 2 mg PO for CIWA 19. Pt impatient to wait for REGULAR SENIOR CARE PROVIDER to smoke on patio. He attempted to leave via stairwell and refused. Staff redirected him. [facility]
--- NOTE | 2018-05-03 14:46 | NUR ---
CIWA 19/COWS 18- PT PRESENTS WITH EXTREME AGITATION, ANXIOUS, RESTLESS, FIDGETY, FINE TREMORS, MANIC SPEECH, SWEATS, BODY ACHES. ADMINISTERED ATIVAN 2 MG PO PRN CIWA >16.
--- NOTE | 2018-05-03 15:33 | NUR ---
Client was prompted to attend twice daily group therapy sessions.
--- NOTE | 2018-05-03 16:20 | NUR ---
CIWA 13/COWS 13- PT PRESENTS WITH ANXIOUSNESS, RESTLESS, FIDGETY, FINE TREMORS, SWEATS, GENERALIZED BODY ACHES AND JOINT PAIN #6/10. hr ELEVATED 105, BP ELEVATED 145/103.
--- NOTE | 2018-05-03 16:32 | NUR ---
History clarification- Pt reports he has used 1 gram of heroin daily since last [facility] discharge. He has also drank 750 ml to 1000 ml of bourbon or vodka every day or every other day since last [facility] discharge on 04/28/2018.
--- NOTE | 2018-05-03 16:51 | NUR ---
PRN MEDICATIONS IBUPROFEN 400 MG PO FOR JOINT PAIN #6/10 ROBAXIN 750 MG PO FOR GENERALIZED BODY ACHES CATAPRES 0.1 MG PO FOR ELEVATED BP 145/103
--- NOTE | 2018-05-03 17:50 | NUR ---
REASSESS MEDICATIONS CATAPRES BP LOWER 142/89, MEDICATION EFFECTIVE ROBAXIN PT REPORT MUSCLE ACHES IMPROVED IBUPROFEN PT REPORT JOINT PAIN #3/10, MEDICATION EFFECTIVE.
--- NOTE | 2018-05-03 18:00 | NUR ---
Non-administer Ensure- Ensure ordered incorrectly in system. Dietary didn't get order as this was ordered through pharmacy. Too late for this evening. Charge nurse notified.
--- NOTE | 2018-05-03 18:29 | NUR ---
End of shift Pt is a 33 y/o male A/O to person, place, time, and purpose. Pt was admitted for medically supervised withdrawal from ETOH and Heroin. Pt presents w/ moderate anxiety, irritable, restlessness, fidgety, sweats, flushed face, tremors, myalgias, and insomnia. Pt disheveled, unshaven, and odorous. Pt has flat affect, and depressed mood and poor insight. Pt has episode this afternoon of extreme irritability and defiance of staff. PRN given today; Subutex, Ativan, Motrin, Robaxin, Vistaril, Catapres. Pt encouraged to participate in group activities and verbalize feelings. At 1600 last CIWA 13 and COWS 13. PO fluids 1800ml, voids x2. Pt reports NKA, Full Code and regular diet. All safety measures in place. Bed low, locked position, side rails upx2, call light is within reach. Will continue to monitor for withdrawal symptoms. Will endorse to PM shift.
--- NOTE | 2018-05-03 19:51 | NUR ---
START OF SHIFT NOTE Rcvd report from outgoing nurse. Pt is a 33 y/o male A/O to person, place, time, and purpose. Pt was admitted for medically supervised withdrawal from ETOH and Heroin. Pt has been presenting w/ anxious mood, agitation, irritability, emotional volatility, sweats, tremors, and body aches. Pt was placed on Patio Restriction for being verbally aggressive to staff during the previous shift. PRN Motrin, Robaxin, and Clonidine given twice, noted ineffective. PRN Subutex, Vistaril, and Ativan also given, noted ineffective. Pt is not exhibiting any S/I or H/I. Last CIWA 13 and COWS 13 @ 1600. Call light is within reach. Pt will continue to be monitored and needs met.
--- NOTE | 2018-05-03 20:00 | NUR ---
CIWA AND COWS ASSESSMENT CIWA 16 and COWS 14. Pt is presenting w/ anxiety, agitation, emotional volatility, irritability, sweats, tremors, and body aches. Pt has been verbally aggressive and abusive towards staff throughout the day. V/S: T:98.1, P:100, RR:18, SPO2:100, BP:134/92.
[2018-05-03] MEDS: ENSURE WITH FIBER 237 ML LIQUID (CHOCOLATE) PO SCH ×2 (20:42→20:43)
--- NOTE | 2018-05-03 20:43 | NUR ---
PRN ATIVAN AND BENADRYL ADMINISTRATION Ativan 2mg and benadryl 50mg given for CIWA 16 and for sleep. Pt has been extremely anxious and very agitated since start of shift. Pt also states they haven't slept since admission. Will reassess pt in 1 hr.
--- NOTE | 2018-05-03 21:43 | NUR ---
TOSHIA ROBLES AND VERA REASSESSMENT Pt is pacing around the hallways and in his room. Pt still seems anxious and agitated. Pt is upset about being put on patio restriction. Spoke w/ pt and he seemed to acknowledge the need to calm down and relax.
--- NOTE | 2018-05-03 22:28 | NUR ---
PRN CLONIDINE AND VISTARIL ADMINISTRATION Clonidine 0.1mg and Vistaril 25mg given. Pt states that the anxiety and agitation hasn't gone away. Will reassess pt in 1 hr.
--- NOTE | 2018-05-03 23:28 | NUR ---
PRN CLONIDINE AND VISTARIL REASSESSMENT Pt states anxiety and agitation has decreased. Pt also went down for a cigarette. Pt states "I'm not going to be running around anymore". Will continue to monitor pt.
[2018-05-03] MEDS: TRAZODONE 50 MG TABLET PO PRN (23:45)
--- NOTE | 2018-05-03 23:45 | NUR ---
PRN ATIVAN AND TRAZODONE ADMINISTRATION Ativan 2mg and Trazodone 50mg given. Pt began to have auditory and visual sensitivity. Pt's lack of sleep seems to be creating beginning stages of auditory and visual hallucinations. Will reassess pt in 1 hr.
[2018-05-04 00:01] VITALS: BP 127/71
--- NOTE | 2018-05-04 00:01 | NUR ---
CIWA AND COWS ASSESSMENT CIWA 15 and COWS 12. Pt presents w/ anxiety, restlessnesssweats, tremors, and body aches. Pt has been emotionally volatile and verbally aggressive. V/S:T:98.2, P:101, RR:16, SPO2:100, BP:127/71.
--- NOTE | 2018-05-04 00:45 | NUR ---
PRN ATIVAN AND TRAZODONE REASSESSMENT Pt is in bed w/ his eyes closed. Pt's respirations are unlabored and even.
--- NOTE | 2018-05-04 04:01 | NUR ---
CIWA AND COWS DEFERRED Pt is in bed w/ his eyes closed. Pt's respirations are unlabored and even.
--- NOTE | 2018-05-04 07:20 | NUR ---
END OF SHIFT NOTE Endorsed pt to oncoming nurse. Pt is a 33 y/o male A/O to person, place, time, and purpose. Pt was admitted for medically supervised withdrawal from ETOH and Heroin. Pt has been presenting w/ anxious mood, agitation, irritability, emotional volatility, sweats, tremors, and body aches. Pt was placed on Patio Restriction for being verbally aggressive to staff during the previous shift. Pt continued to be verbally aggressive and abusive to staff. Pt was spoken to by RN, pattern painter, and VP OF PRODUCT Chief Of Hospital Medicine. PRN Ativan 2mg given twice, noted ineffective. PRN Clonidine 0.1mg, Vistaril 25mg, Benadryl 50mg, and Tarzodone 50mg also given, noted ineffective. Pts fluid intake was 2000ml and he voided 3 times. Last CIWA 15 and COWS 12 @ 0030. Call light is within reach.
--- NOTE | 2018-05-04 07:35 | NUR ---
START OF SHIFT Pt is a 33 yr old male, admitted on 05/03/18 for Opiate/ETOH withdrawal and is on 5 day Subutex taper as ordered. Received report from shift engineer nurse. Pt received Ativan 2mg PO x2, Benadryl PRN, Clonidine, Vistaril PRN, and Trazodone PRN during the night. Last COWS score was 12 and CIWA score was 15. Pt was able to sleep for 5 hrs and remains in bed sleeping with respirations even and unlabored. Skin is intact, warm and moist to touch. Pt's room is noted disheveled with multiple opened candy wrappers and empty bottles of water and soda on the bedside table. Pt is on fall and seizure precautions. Call light is within reach. Will continue to monitor. Addendum: 05/05/18 at 0735 by SAUL ARMSTRONG LVN Error in documentation Pt is on a 3 day Subutex taper and not a 5 day Subutex taper.
[2018-05-04 08:02] VITALS: BP 120/71
--- NOTE | 2018-05-04 08:45 | NUR ---
COWS 6, CIWA 6 Pt is c/o anxiety, agitation, chills, sweats and restlessness. Pt states of have generalized body aches 4/10. COWS score was 6 and CIWA score was 6. Encouraged increase fluid intake. Will continue to f/u with eMAR.
[2018-05-04] MEDS ORDERED: TUBERCULIN,PURIF.PROT.DERIV. 5 TU/0.1 ML TEST ID ONE (09:00)
[2018-05-04] MEDS: BUPRENORPHINE HCL 2 MG TAB.SUBL SL SCH ×3 (09:58→20:54)
[2018-05-04] MEDS: FOLIC ACID 1 MG TABLET PO SCH (09:58)
[2018-05-04] MEDS: THIAMINE HCL 100 MG TABLET PO SCH (09:58)
[2018-05-04] MEDS: MULTIVITAMINS,THERAPEUTIC TABLET PO SCH (09:58)
[2018-05-04] MEDS: ENSURE WITH FIBER 237 ML LIQUID (CHOCOLATE) PO SCH ×3 (10:07→17:05)
--- NOTE | 2018-05-04 10:09 | NUR ---
MEDICATION REFUSED Pt refused to have TB skin test done. Pt states he had one done in March while being here at [facility] for detox and had a Negative result. Pt denies any cough or chest congestion. Md was made aware.
[2018-05-04 12:05] VITALS: BP 115/73
--- NOTE | 2018-05-04 12:10 | NUR ---
COWS 6, CIWA 5 Pt is c/o anxiety, agitation, chills, sweats and restlessness. Pt is c/o lower back pain 5/10 and is noted irritable. COWS score was 6 and CIWA score was 5. Encouraged increase fluid intake. Will continue to f/u with eMAR.
[2018-05-04 16:00] VITALS: BP 117/67
[2018-05-04 17:06] LABS: HEPATITIS B SURFACE AG Negative (Negative)
--- NOTE | 2018-05-04 19:04 | NUR ---
END OF SHIFT Pt is a 33 yr old male, AA&Ox4. Pt was admitted on 05/03/18 for Opiate/ETOH withdrawal and is on 3 day Subutex taper as ordered, medication sebastian well. Pt has been noted with increase fatigue and remained in his room throughout the day. Pt was encouraged to attend group therapy but pt refused. Pt was c/o anxiety, agitation, sweats and muscle aches. Pt is noted with a flat affect. Skin is intact, warm and moist to touch. No PRNs were given during the night. Last COWS score was 10 and CIWA score was 10 at 1600. Pt was encouraged increase fluid intake for hydration. Safety precautions observed. Call light is within reach. Endorsed to assembler 1st shift nurse to continue with care.
--- NOTE | 2018-05-04 19:30 | NUR ---
Start of Shift Endorsement received from day nurse. Pt admitted 05/03/18 for medically managed withdrawal from ETOH and Heroin. Pt is listed as a full code, with NKA's and on a regular diet. Pt is on room restrictions for behavioral issues, appears to be assuming responsibility for his actions and adhering to rules. Pt appears to be anxious and restless, diaphoresis evident, fine tremors, depression and irritable. Pt wearing same apparel as previous night. Last COWS/CIWA reported from day shift 07/08. Will continue to monitor pt for duration of shift, promptly attending to all s/sx's of w/d or distress.
[2018-05-04 20:00] VITALS: BP 130/74
--- NOTE | 2018-05-04 20:00 | NUR ---
Evening Rounds COWS 10, CIWA 11, aeb anxiety and restlessness, fine tremors, anhedonia, yawning, diaphoresis/chills, depression, difficulty concentrating and sleeping, emotional volatility, fatigue and malaise, insomnia.
[2018-05-04] MEDS: TRAZODONE 50 MG TABLET PO PRN (20:54)
[2018-05-04] MEDS: CLONIDINE HCL 0.1 MG TABLET PO PRN (20:54)
[2018-05-04] MEDS: HYDROXYZINE PAMOATE 25 MG CAPSULE PO PRN (20:54)
[2018-05-04] MEDS: diphenhydrAMINE 50 MG CAPSULE PO PRN (20:55)
--- NOTE | 2018-05-04 20:55 | NUR ---
PRN Meds Benedryl 50mg PO for insomnia, Clonidine 0.1mg PO for diaphoresis/ADHD, Trazodone 50mg PO for sleep, and Vistaril 25mg PO for anxiety given. Will continue to monitor and reassess in 1 hour.
--- NOTE | 2018-05-04 21:55 | NUR ---
PRN Reassessment Benedryl 50mg PO for insomnia, Clonidine 0.1mg PO for diaphoresis/ADHD, Trazodone 50mg PO for sleep, and Vistaril 25mg PO for anxiety given 1 hour prior. At present, pt is sleeping, RR 14, even and nonlabored. Meds effective.
[2018-05-04 23:00] VITALS: BP 104/59
[2018-05-05] VITALS: BP 104/59
--- NOTE | 2018-05-05 | NUR ---
Midnight Rounds VS's obtained, stable. COWS and CIWA deferred r/t pt somnalence. Will continue to monitor and promptly attend to all s/sx's w/d or distress.
--- NOTE | 2018-05-05 04:00 | NUR ---
0400 Rounds Pt awakened on entry into room, exclaims "you don't need to get it, everybody, the alpesh at the front end developer and the doctor told me you only need it once a shift" Pt not able to be negotiated with or redirected. VS's and COWS'CIWA not obtained and deferred to morning r/t continued behavioral issues. CN notified and agreeable.
--- NOTE | 2018-05-05 07:30 | NUR ---
End of Shift Endorsement given to day nurse. Pt admitted 05/03/18 for medically managed withdrawal from ETOH and Heroin. Pt is listed as a full code, with NKA's and on a regular diet. Pt is on room restrictions for behavioral issues, appears to be assuming responsibility for his actions and attempting to adhere to rules. PRN's for shift included Benedryl, Clonidine, Trazodone and Vistaril. Pt slept for 7 hours with 1210mls intake and 2 voids. W/S symptoms exhibited were anxiety and restlessness, irritability with emotional volatility, tremors, diaphoresis, yawning anhedonia. 0400 showed behavioral issues arise again with insistence not to be disturbed with increased hostility
--- NOTE | 2018-05-05 07:31 | NUR ---
START OF SHIFT Pt is a 33 yr old male, admitted on 05/03/18 for Opiate/ETOH withdrawal and is on 3 day Subutex taper as ordered. Received report from warehouse worker 2nd shift nurse. Pt received Benadryl PRN, Clonidine PRN, Trazodone PRN, and Vistaril PRN during the night. Medication was effective. Last COWS score was 10 and CIWA score was 11. Pt was able to sleep for 7 hrs and remains in bed sleeping with respirations even and unlabored. Skin is intact, warm and moist to touch. Pt's room remains disheveled with multiple opened candy wrappers and empty bottles of water and soda on the bedside table and dirty linens on the floor. Pt is on fall and seizure precautions. Call light is within reach. Will continue to monitor.
[2018-05-05 08:00] VITALS: BP 107/58
[2018-05-05] MEDS: ENSURE WITH FIBER 237 ML LIQUID (CHOCOLATE) PO SCH ×3 (08:00→17:37)
[2018-05-05] MEDS: MULTIVITAMINS,THERAPEUTIC TABLET PO SCH ×2 (09:00→09:49)
[2018-05-05] MEDS: THIAMINE HCL 100 MG TABLET PO SCH ×2 (09:00→09:49)
[2018-05-05] MEDS: FOLIC ACID 1 MG TABLET PO SCH ×2 (09:00→09:49)
[2018-05-05] MEDS ORDERED: BUPRENORPHINE HCL 2 MG TAB.SUBL SL SCH (09:00)
--- NOTE | 2018-05-05 09:30 | NUR ---
COWS 8, CIWA 9 Pt is c/o anxiety, agitation, chills, sweats, restlessness and lower back pain aches 5/10. Skin is warm and clammy to touch. COWS score was 8 and CIWA score was 9. Encouraged increase fluid intake. Will continue to f/u with eMAR.
[2018-05-05 12:00] VITALS: BP 128/75
--- NOTE | 2018-05-05 12:00 | NUR ---
COWS 6, CIWA 6 Pt is c/o anxiety, agitation, chills, sweats, restlessness and lower back pain. Pt is noted with flat affect and is observed guarded. Skin is warm and clammy to touch. COWS score was 6 and CIWA score was 6. Encouraged increase fluid intake for hydration. Pt was encouraged to attend group therapy during the day. Will continue to monitor.
--- NOTE | 2018-05-05 13:44 | NUR ---
Client was prompted to attend group therapy sessions.
--- NOTE | 2018-05-05 14:15 | NUR ---
Endorsement Glass Blowing Lathe Operator received report on pt and assumed care of pt.
--- NOTE | 2018-05-05 14:15 | NUR ---
Report to RN nurse to continue with care. Pt is AA&Ox4 and is in stable condition. Last COWS score was 6 and CIWA score was 6 at 1600. Addendum: 05/05/18 at 1423 by SAUL ARMSTRONG LVN Error in documentation Last COWS and CIWA score was at 1200
[2018-05-05 16:45] VITALS: BP 133/81
--- NOTE | 2018-05-05 16:45 | NUR ---
CIWA 6/COWS 5 Pt is diaphoretic, tremulous and anxious with restlessness. Pt with an angry affect and depressed mood. Will continue to monitor, support and encourage according to plan of care.
--- NOTE | 2018-05-05 19:00 | NUR ---
End of Shift Human Resources Operations Specialist provided report on 33 year old male admitted to [facility] on 05/03/18 for medical management of ETOH and Opiate withdrawals. Pt endorses NKA, full code and regular diet. Denies any PMH/PPH. Pt has completed a Subutex taper and is preparing to discharge tomorrow. Pts last CIWA 6 and COWS 5, recorded at 1645. Pt not administered any PRN medication this shift. Pt is isolative, withdrawn and easily irritated. Linear thought process with clear speech pattern. Angry affect with depressed mood. Demanding and entitled. Bed in low position with wheels locked and side rails up x2.
[2018-05-05 20:00] VITALS: BP 116/70
--- NOTE | 2018-05-05 20:00 | NUR ---
Start of Shift Note Received 33 y/o male px, admitted for medically supervised withdrawal from ETOH and Heroin. Px completed 3 day Subutex taper. He tolerated it. Px is to be D/C tomorrow, 05/06/2018. Last reported COWS 5 and CIWA 6 by AM shift nurse. During the rounds at 2000, px asleep. Unfinished drinks and snack noted on top of the shelves and cabinet. Room is odorous. Bed on lowest position, side rails up 2x, and call light within reach. We'll continue to monitor.
--- NOTE | 2018-05-05 20:00 | NUR ---
COWS and CIWA deferred COWS and CIWA deferred due to the px is asleep. To assess if the px is awake per doctor's order. We'll continue to monitor.
[2018-05-05] MEDS ORDERED: TRAZ-213 PO (20:42)
--- NOTE | 2018-05-05 21:45 | NUR ---
Px woke up Px woke up and requested to smoke. Px appears anxious, disheveled and unshaven. He said that he is ready to be D/C tomorrow. He stated that his anxiety is 7/10, has sweats, flush and chills. Px also complained of H/A and body aches of 7/10. We'll continue to monitor.
--- NOTE | 2018-05-05 21:50 | NUR ---
COWS 7 and CIWA 13 Px appears anxious, disheveled and unshaven. He stated that his anxiety is 7/10, has sweats, flush and chills. Px also complained of H/A and body aches of 7/10. We'll continue to monitor.
[2018-05-05] MEDS: METHOCARBAMOL 750 MG TABLET PO PRN (22:38)
[2018-05-05] MEDS: CLONIDINE HCL 0.1 MG TABLET PO PRN (22:38)
--- NOTE | 2018-05-05 22:38 | NUR ---
PRN medications Px received Robaxin 750 mg PO for body aches 04/07, Tylenol 650 mg PO for H/A of 04/07 and Clonidine 0.1 mg PO for anxiety of 04/07. To reassess after an hour.
--- NOTE | 2018-05-05 23:40 | NUR ---
Reassessment Px stated that his H/A and body aches were reduced to 4/10 and anxiety is better now at 5/10. We'll continue to monitor.
[2018-05-06] VITALS: BP 115/77
--- NOTE | 2018-05-06 | NUR ---
COWS 5 and CIWA 10 Px appears anxious, disheveled and unshaven. He stated that his anxiety is 5/10, has sweats, flush and chills. Px H/A and body aches are reduced to 4/10. We'll continue to monitor.
[2018-05-06 04:00] VITALS: BP 110/74
--- NOTE | 2018-05-06 07:10 | NUR ---
End of Shift Note Px is to be D/C today, 05/06/2018. Px verbalized he's ready for 30 day program after this detox. During the shift at 2238, px received Robaxin 750 mg PO for body aches, Tylenol 650 mg PO for H/A and Clonidine 0.1 mg PO for anxiety. They were effective. Px oral intake is 1000 ml, voided 2x, without BM. Px slept for 8 hours. At 0630, px is asleep on bed in right side lying position. Last COWS 5 and CIWA 10. Bed on lowest position, side rails up 2x, and call light within reach. We'll continue to monitor.
--- NOTE | 2018-05-06 07:30 | NUR ---
Start of Shift Pt. is a 33 y/o male admitted for the medically managed withdrawal from Opiates (heroin) and ETOH. Pt. was placed on a 3 day subutex taper which began on 05/03/2018. Pt. completed his subutex and is set to be discharged per MD order today. Endorse pt. presented with anxiety, headache, and body aches during previous shift for which he was given multiple PRN's to manage his symptoms. Received pt. in his room. Pt. laying on his bed, linens cluttered about the bed and falling of the sides. Pt. has multiple open food containers around his bed. Encouraged pt. to maintain a clean and hygienic person and personal space. Educated pt. on discharge plan, and pt. verbalized understanding. Last COW's 5 and CIWA 10. Pt. slept 8 hours. Safety measures in place. Will continue to monitor pt. for safety.
[2018-05-06 08:00] VITALS: BP 107/61
[2018-05-06] MEDS: FOLIC ACID 1 MG TABLET PO SCH (08:43)
[2018-05-06] MEDS: MULTIVITAMINS,THERAPEUTIC TABLET PO SCH (08:43)
[2018-05-06] MEDS: ENSURE WITH FIBER 237 ML LIQUID (CHOCOLATE) PO SCH (08:43)
[2018-05-06] MEDS: THIAMINE HCL 100 MG TABLET PO SCH (08:44)
--- NOTE | 2018-05-06 11:35 | NUR ---
Discharge Note Pt. is a 33 y/o male admitted for the medically managed withdrawal from opiates and ETOH. Pt. is being discharge to [facility] per MD order with Rx. Pt. is A/O X 4 with no acute distress noted. Vital Signs WNL. Pt. denies SI, HI, AH, and VH. All discharge documents signed and placed in blue and black discharge bag. Pt. educated on discharge plan and verbalize understanding. All belongings returned to pt. Pt. is to be picked up by [employer] transportation. At this time pt. was escorted to the lobby by staff.
== END 2018-05-06 11:35 | DRG 895 ==
LOC: SRC 05-03 00:05
PROVIDERS: ADMIT Family Medicine Addiction Medicine; ATTEND Internal Medicine
PROC: HZ41ZZZ Group Counseling for Substance Abuse Treatment, Behavioral (ICD-10-PCS; principal; 2018-05-03)
PROC: HZ2ZZZZ Detoxification Services for Substance Abuse Treatment (ICD-10-PCS; principal; 2018-05-03)
DX: F10.230 Alcohol dependence with withdrawal, uncomplicated (principal); F15.23 Other stimulant dependence with withdrawal; Y90.9 Presence of alcohol in blood, level not specified; F12.20 Cannabis dependence, uncomplicated; F17.210 Nicotine dependence, cigarettes, uncomplicated; G89.29 Other chronic pain; M54.5 Low back pain; Z98.1 Arthrodesis status; Z81.8 Family history of other mental and behavioral disorders; G47.00 Insomnia, unspecified; F41.9 Anxiety disorder, unspecified
CPT/HCPCS: 36415; 70030-TC; 80307; 80324; 80349; 80361; 83690; 83735; 84443; 85025; 86580; 86592; 86705; 86803; 87340; 87806; A4663; G0480; J3411; Q0163